=== PATIENT | male | born 1950 | race Hispanic/Latino ===

== ENCOUNTER 2024-10-05 06:08 | Observation (INO) | payer OTHER ==
[2024-09-30 11:47] VITALS: BP 161/68; PULSE 68; RESP 18; TEMP 98.6
[2024-09-30 12:02] LABS: BASOPHILS # (AUTO) 0.07 K/uL (0.00-0.20); BASOPHILS % (AUTO) 0.8 % (0.0-5.0); EOSINOPHILS # (AUTO) 0.09 K/uL (0.00-0.70); HEMATOCRIT 45.4 % (42-54); IMMATURE GRANULOCYTE ABSOLUTE 0.02 K/uL (0-1); LYMPHOCYTES # (AUTO) 2.4 K/uL (1.0-4.8); LYMPHOCYTES % (AUTO) 26.7 % (21.0-51.0); MEAN CORPUSCULAR HEMOGLOBIN 30.6 pg (27.0-33.0); MEAN CORPUSCULAR HGB CONC 33.9 g/dL (32.0-36.0); MEAN CORPUSCULAR VOLUME 90.3 fL (79-99); MONOCYTES # (AUTO) 0.8 K/uL (0.1-1.0); NEUTROPHILS # (AUTO) 5.5 K/uL (1.8-7.7); NEUTROPHILS % (AUTO) 62.3 % (40.0-77.0); PLATELET COUNT (AUTO) 224 K/uL (130-400); RED BLOOD CELL COUNT(AUTO) 5.03 MIL/uL (4.50-6.20); RED CELL DISTRIBUTION WIDTH 12.5 % (11.0-15.5); WHITE BLOOD COUNT (AUTO) 8.8 K/uL (4.8-10.8)
[2024-09-30 12:15] LABS: INR 0.97 (0.85-1.15); PROTHROMBIN TIME 10.9 SEC (9.6-11.6)
[2024-09-30 12:17] LABS: ALBUMIN 3.9 g/dL (3.5-5.0); CARBON DIOXIDE 30 mmol/L (21-32); CHLORIDE 102 mmol/L (101-111); GLOMERULAR FILTR. RATE CALC 79 mL/min (>90); GLUCOSE,RANDOM 102 mg/dL (70-105); POTASSIUM 4.3 mmol/L (3.5-5.1); SODIUM SERUM 139 mmol/L (136-145); UREA NITROGEN, BLOOD 20 mg/dL (7-18)
[2024-10-05] VITALS (27 sets, daily range): BP systolic 111–175; BP diastolic 46–105; PULSE 59–79; RESP 15–20; TEMP 97.1–98.8; O2SAT 96
[~2024-10-05] VITALS: Ht 167.6 cm; Wt 87.6 kg
[~2024-10-05 06:08] MED LIST: AMLO1CAP88 PO; CELE-125 PO; IBUP-2784 PO; MELO-106 PO; PRAV40TA3 PO
[2024-10-05] MEDS: ceFAZolin SODIUM 2 GM VIAL ONE (07:20)
[2024-10-05] MEDS: LACTATED RINGERS 1000ML 1,000 ML IV ONE (07:20)
[2024-10-05] MEDS ORDERED: ketOROlac 30MG VIAL (30MG/ML) ONE (07:35)
[2024-10-05] MEDS ORDERED: ROPivacaine 0.5% 5MG/ML 30ML ONE ×3 (07:35→08:55)
[2024-10-05] MEDS ORDERED: MIDAZOLAM HCL 1 MG/ML 2ML VIAL ONE (08:19)
[2024-10-05] MEDS ORDERED: proPOFol 10 MG/ML 20ML VIAL IV ONE (08:19)
[2024-10-05] MEDS ORDERED: ondanSETRON 4MG INJ ONE (08:20)
[2024-10-05] MEDS ORDERED: rocuRONium bROMide 10MG/1ML 5ML VL ONE ×2 (08:20→08:59)
[2024-10-05] MEDS ORDERED: FENTanyl CITRate PF 50 MCG/1 ML 2ML VIAL ONE ×2 (08:24→10:29)
[2024-10-05] MEDS: TRANEXAMIC ACID 1000MG/10ML ONE (08:50)
[2024-10-05] MEDS ORDERED: GLYCOPYRROLATE 0.2 MG/ML 5 ML VIAL ONE (10:29)
[2024-10-05] MEDS ORDERED: NEOSTIGMINE METHYLSULFATE 1MG/ML IV ONE (10:29)
[2024-10-05] MEDS ORDERED: PoTASSium chloRIDE 20MEQ/100ML 100 ML IV PRN (10:30)
[2024-10-05] MEDS ORDERED: PoTASSium chl 10% ELIXIR 20MEQ 20 MEQ/15 ML UDCUP PO PRN (10:30)
[2024-10-05] MEDS: ketOROlac 15MG/ML VIAL (15MG/ML) IV SCH (10:30)
[2024-10-05] MEDS ORDERED: DiphenhydrAMINE HCL 50 MG/ML VIAL IVP PRN (10:30)
[2024-10-05] MEDS ORDERED: PoTASSium chloRIDE 20MEQ ER 20 MEQ ERTAB PO PRN (10:30)
[2024-10-05] MEDS ORDERED: CALCIUM CARB 500MG PO PRN (10:30)
[2024-10-05] MEDS ORDERED: ondanSETRON 4MG INJ IVP PRN (10:30)
[2024-10-05] MEDS ORDERED: FERROUS FUMARATE 324 MG TABLET PO PRN (10:30)
--- NOTE | 2024-10-05 10:31 | OP ---
Operative Note: DATE OF PROCEDURE: 10/05/24 PREOPERATIVE DIAGNOSIS: Right knee osteoarthritis. POSTOPERATIVE DIAGNOSIS: Right knee osteoarthritis. PROCEDURE PERFORMED: Right knee total knee arthroplasty. SURGEON: Georgie Crews MD SALESMAN/OWNER: Kelly Turcios. ANESTHESIA: General with adductor canal block. ANESTHESIA: HIM MANAGER Manuel James ESTIMATED BLOOD LOSS: 50cc. COMPLICATIONS: None. DRAINS: None. SPECIMENS REMOVED: resected bone. Not sent to pathology. IMPLANTS: [employer] BCS size 4 Oxinium femur, size 4 tibial base plate, 32 mm patella, 10 mm polyethylene STATEMENT OF MEDICAL NECESSITY: The patient is a 74-year-old male who suffers from right knee osteoarthritis failing conservative management. After discussion of the risks, benefits, and alternatives with the patient, they voluntarily agreed to undergo the aforementioned procedure. DESCRIPTION OF PROCEDURE: Patient was properly identified in the preoperative holding area. Surgical site marking was verified and surgery consent reviewed. The patient was then taken to the operating room and placed in supine position on the OR table. After induction of general anesthesia, preoperative antibiotics were given, all bony prominences were well-padded, and a well padded tourniquet was applied but not inflated at this time. The right lower extremity was then prepped and draped in usual sterile fashion. Surgical time out was done verifying correct surgery, side, site, and location to be performed. We then began the procedure by exsanguinating the limb using an Esmarch and inflating the tourniquet to 350 mmHg. At this point, we made an anterior midline incision using a 10 blade, coming down sharply the level of the fascia. Skin flaps were elevated medially and laterally. We then obtained a clean 10 blade and performed a standard medial parapatellar arthrotomy. We excised the infrapatellar fat pad. We performed our soft tissue releases off of the tibia. We transected the ACL and removed the anterior portion of the medial & lateral meniscus. We then brought the knee into hyperflexion with the patella everted. We used our entry reamer to enter the femoral canal. We then placed our intramedullary cutting guide for our distal femoral cutting block. We then performed our distal femoral osteotomy ensuring appropriate rotation and removed the bony wafer. We then removed these pins and block and then used jig 2 to size the distal femur with the after mentioned size found. We then placed our 5-in-1 cutting block in 3 degrees of external rotation and took our 5 cuts ensuring to protect the patellar tendon and the collateral ligaments. We then removed the cutting block and our bony fragments using a curved osteotome. We then placed our PCL retractor subluxating the tibia anteriorly. Using an extra medullary tibial cutting guide, we hung the block for our proximal tibial cut taking 2 mm off the more diseased portion. Prior to pinning this block in place, we ensured appropriate varus/valgus alignment and posterior slope similar to the ho-chunk slope of the patient's knee. We then performed our proximal tibial osteotomy and removed the bony wafer using Bovie electrocautery to release any remaining soft tissue attachments. We then used our tibial sizing paddle and checked once more for varus & valgus alignment and found this to be appropriate. At this point, we pinned our tibial paddle in place. We then removed the PCL retractor and subluxated the tibia posteriorly while we placed our femoral trial component. We then finished preparing the notch with the reamer and box chisel. The notch portion of the trial femoral component was then placed. A posterior stabilized polyethylene, size 9 trial was placed. The knee was then taken through range of motion and found to have stable full range of motion. We then placed a bump under the ankle and everted the patella to perform our freehand cut of the undersurface the patella. We then sized our patella and reamed to the lug holes for this. We placed our trial patellar component and begin to take the knee through range of motion. The patella had appropriate tracking. At this point we began removing our trial components and punched the tibial keel prior to removing our tibial trial component. Final components were opened and cement was mixed on the back table while we injected local cocktail in the posterior capsule. We then thoroughly irrigated out the bone and dried the bony surfaces. We cemented our tibial component in place ensuring to remove excess cement and placed our trial polyethylene. We then cemented our femoral component in place once again taking time to ensure excess cement was removed leg was brought into full extension to help squeeze the excess cement from around the femoral component. We then brought the knee back in a flexion to remove this portion of the cement at this point we placed the ankle in a bump thoroughly irrigated off the patellar component and cemented our patellar component in standard fashion again removing excess cement. While we waited for the cement to cure, we thoroughly irrigated out the wound with normal saline. Once our cement had cured, we took the knee through a range of motion and found full and stable range of motion. We then elected to use the size 10 polyethylene and removed our trial polyethylene. We impacted our final polyethylene component in place in standard fashion and took the knee through a range of motion check once more. This was satisfactory so we began to repair the arthrotomy using #1 Vicryl in interrupted [id number] fashion. Subcutaneous tissue was repaired using 2-0 Vicryl. Running subcuticular 3-0 Monocryl stitch with Dermabond placed over this for the skin. We then applied a foam barrier dressing and a pressure dressing consisting of 4 x 4's fluffs and an Roe wrap. The tourniquet was then deflated. Patient was awakened from anesthesia, and they were taken to the recovery room in stable condition. GEORGIE CREWS MD Oct 05, 2024 10:31
[2024-10-05] MEDS: MEPERIDINE-PF 25 MG/ML SYG ONE ×2 (11:00→11:12)
--- NOTE | 2024-10-05 13:06 | HMCIMG ---
KNEE/PATELLA 1-2VWS RT HISTORY: Post surgery COMPARISON: None TECHNIQUE: 2 images of right knee were obtained. FINDINGS: Soft tissue swelling and soft tissue emphysema is seen consistent with recent surgery. Right total knee arthroplasty changes are seen. Vascular calcifications are seen. Degenerative changes are seen. IMPRESSION: 1. Findings as described above.
[2024-10-05] MEDS: GABApentin 100 MG CAPSULE PO SCH (13:54)
[2024-10-05] MEDS: HYDROcodone/APAP 5/325 1 TAB TABLET PO PRN (13:55)
[2024-10-05] MEDS: 0.9%NACL 1000ML 1,000 ML IV SCH (13:55)
[2024-10-05] MEDS: ceFAZolin SODIUM 2 GM VIAL IVP SCH (16:02)
--- NOTE | 2024-10-05 17:32 | NUR ---
[facility] CM MET WITH PT ASSESSMENT DONE. PATIENT IS INDEPENDENT PRIOR TO SURGERY, LIVES AT HOME ALONE, SONS LIVES CLOSE BY BUT THEY BOTH WORK, ONE WORKS AT NIGHT AND SLEEPS DURING THE DAY. PATIENT HAS A CANE. DENIES ANY OTHER EQUIPMENT/SERVICES. FEELS SAFE TO GO BACK HOME, STILL DRIVE, SONS ABLE TO ASSIST WITH TRANSPORTATION AND NEEDS NECESSARY. DISCUSSED MD RECOMMENDATIONS FOR SHORT TERM REHAB, PT PREFERRED TO GO TO [facility], INFORMED PT THIS CM UNABLE TO GUARANTEE PT WILL BE APPROVED DUE TO INSURANCE, PT REQUEST TO TRY, CONSENT OBTAINED [facility] #1 [facility], IF DENIED THEN AGREEABLE FOR #2 [facility]. [facility] IRU ONCE APPROVED. CM SENT ORDER, CLINICALS, PT TO [facility] VIA SECURE FAX AND EMAIL, CONFIRMATION RECEIVED. PENDING REP RESPONSE. PT PENDING APPROVAL AND ACCEPTANCE. MOT SEMI-FILLED, PENDING TO COMPLETE ONCE AUTH RECEIVED. EMS FILLED OUT PENDING TO FAX W/CURRENT DATE ONCE PT READY TO DC. CM TO CONTINUE TO FOLLOW UP. Addendum: 10/05/24 at 1735 by GEOVANNA MULTANI LVN Amended: Links added.
[2024-10-05] MEDS: ASPIRIN 325MG TAB PO SCH (20:57)
[2024-10-05] MEDS: CeleCOXib 200 MG CAP PO SCH (20:57)
[2024-10-05] MEDS: doCUSate SODIUM 100 MG CAP PO SCH (20:57)
[2024-10-05] MEDS: PRAVASTATIN 40MG PO SCH (20:59)
[2024-10-05] MEDS: traMADol HCL 50 MG TABLET PO PRN (22:56)
[2024-10-05] MEDS: BENZOCAINE/MENTH/CETYLPYRD CL 1 EACH LOZENGE MM PRN (23:03)
[2024-10-06] VITALS (7 sets, daily range): BP systolic 134–162; BP diastolic 58–72; PULSE 65–77; RESP 14–19; TEMP 97.7–99.6; O2SAT 95–96
[2024-10-06] MEDS: traMADol HCL 50 MG TABLET PO PRN (02:39)
[2024-10-06 05:27] LABS: HEMATOCRIT 34.7 % (42-54); MEAN CORPUSCULAR HGB CONC 33.7 g/dL (32.0-36.0); RED BLOOD CELL COUNT(AUTO) 3.77 MIL/uL (4.50-6.20); RED CELL DISTRIBUTION WIDTH 12.4 % (11.0-15.5); WHITE BLOOD COUNT (AUTO) 11.9 K/uL (4.8-10.8)
[2024-10-06 05:38] LABS: CREATININE 1.1 mg/dL (0.5-1.3)
--- NOTE | 2024-10-06 07:56 | PN ---
Ortho postop day one. This morning patient is awake alert and oriented he is seated out of bed in a chair. Reports moderate pain. Operative findings discussed with the patient. Vital signs have remained stable. Afebrile. Laboratory results reviewed. Noted to have a drop in hemoglobin and hematocrit as expected after total knee arthroplasty. Patient is currently asymptomatic and we will address per protocol as necessary. Voiding on his own without difficulty. Roe bandage his already been removed and the dressing to the anterior joint is intact. He has ice present to operative site. Alternating while seated extending and flexing his knee on footstool. Performing incentive spirometry as instructed with returned demonstration adequate. Patient was able to ambulate yesterday about 10 ft with therapy and is pending further therapy this morning. This morning patient states that although [facility] he is willing to go to [facility] as long as he does not go home. Patient states he has no one to help him at home. Assessment: Status post right total knee arthroplasty. Acute postoperative blood loss anemia. Plan: Continue with Dr. Crews's total knee arthroplasty protocol and discharge planning. Acute postoperative blood loss anemia addressed per protocol as necessary. Vitals/Labs Vital Signs Date Time Temp Pulse Resp B/P (MAP) Pulse Ox O2 Delivery O2 Flow Rate FiO2 10/06/24 07:51 98.2 65 14 135/69 95 Room Air 0.0 10/05/24 20:00 21 Laboratory Tests 10/06/24 05:08 Medications Current Medications Cefazolin Sodium 2 gm STK-MED ONCE .ROUTE Last administered on 10/05/24at 08:45; Start 10/05/24 at 06:56; Stop 10/05/24 at 07:01; Status DC Lactated Ringer's 1,000 ml @ As Directed STK-MED ONCE IV Last administered on 10/05/24at 07:20; Start 10/05/24 at 06:56; Stop 10/05/24 at 07:01; Status DC Ketorolac Tromethamine 30 mg STK-MED ONCE .ROUTE; Start 10/05/24 at 07:35; Stop 10/05/24 at 07:35; Status DC Ropivacaine 150 mg STK-MED ONCE .ROUTE; Start 10/05/24 at 07:35; Stop 10/05/24 at 07:35; Status DC Ropivacaine 150 mg STK-MED ONCE .ROUTE; Start 10/05/24 at 08:19; Stop 10/05/24 at 08:19; Status DC Propofol 200 mg STK-MED ONCE IV; Start 10/05/24 at 08:19; Stop 10/05/24 at 08:20; Status DC Midazolam HCl 2 mg STK-MED ONCE .ROUTE; Start 10/05/24 at 08:19; Stop 10/05/24 at 08:20; Status DC Ondansetron HCl 4 mg STK-MED ONCE .ROUTE; Start 10/05/24 at 08:20; Stop 10/05/24 at 08:20; Status DC Rocuronium [place] 50 mg STK-MED ONCE .ROUTE; Start 10/05/24 at 08:20; Stop 10/05/24 at 08:20; Status DC Fentanyl Citrate 100 mcg STK-MED ONCE .ROUTE; Start 10/05/24 at 08:24; Stop 10/05/24 at 08:24; Status DC Tranexamic Acid 1,000 mg STK-MED ONCE .ROUTE Last administered on 10/05/24at 08:50; Start 10/05/24 at 08:54; Stop 10/05/24 at 08:55; Status DC Ropivacaine 150 mg STK-MED ONCE .ROUTE; Start 10/05/24 at 08:55; Stop 10/05/24 at 08:55; Status DC Rocuronium [place] 50 mg STK-MED ONCE .ROUTE; Start 10/05/24 at 08:59; Stop 10/05/24 at 08:59; Status DC Sodium Chloride 1,000 ml @ 100 mls/hr Q10H IV Last administered on 10/05/24at 13:55; Start 10/05/24 at 10:30; Stop 10/06/24 at 10:29 Polyethylene Glycol 17 gm DAILY PO; Start 10/06/24 at 09:00; Stop 11/05/24 at 08:59 Bisacodyl 10 mg DAILY PRN RC; Start 10/08/24 at 10:30; Stop 11/07/24 at 10:29 Aspirin 325 mg BID PO Last administered on 10/05/24at 20:57; Start 10/05/24 at 21:00; Stop 11/04/24 at 20:59 Ketorolac Tromethamine 15 mg Q6H PRN IV; Start 10/06/24 at 10:30; Stop 10/06/24 at 02:23; Status DC Ferrous Fumarate 324 mg DAILY PRN PO; Start 10/05/24 at 10:30; Stop 11/04/24 at 10:29 Ondansetron HCl 4 mg Q6H PRN IVP; Start 10/05/24 at 10:30; Stop 11/04/24 at 10:29 Calcium Carbonate 500 mg Q12H PRN PO; Start 10/05/24 at 10:30; Stop 11/04/24 at 10:29 Diphenhydramine HCl 25 mg Q6H PRN IVP; Start 10/05/24 at 10:30; Stop 11/04/24 at 10:29 Cefazolin Sodium 2 gm Q8H IVP Last administered on 10/05/24at 23:40; Start 10/05/24 at 15:30; Stop 10/05/24 at 23:31; Status DC Cyclobenzaprine HCl 5 mg Q8H PRN PO; Start 10/05/24 at 10:30; Stop 11/04/24 at 10:29 Gabapentin 100 mg TID PO Last administered on 10/05/24at 20:57; Start 10/05/24 at 14:00; Stop 11/04/24 at 13:59 Ketorolac Tromethamine 15 mg Q8H IV Last administered on 10/06/24at 02:39; Start 10/05/24 at 10:30; Stop 10/06/24 at 02:31; Status DC Docusate Sodium 100 mg BID PO Last administered on 10/05/24at 20:57; Start 10/05/24 at 21:00; Stop 11/04/24 at 20:59 Potassium Chloride 100 ml @ 100 mls/hr AD PRN IV; Start 10/05/24 at 10:30; Stop 11/04/24 at 10:29 Potassium Chloride 20 meq AD PRN PO; Start 10/05/24 at 10:30; Stop 11/04/24 at 10:29 Potassium Chloride 20 meq AD PRN PO; Start 10/05/24 at 10:30; Stop 11/04/24 at 10:29 Tramadol HCl 50 mg Q6H PRN PO Last administered on 10/05/24at 22:56; Start 10/05/24 at 10:30; Stop 10/06/24 at 02:22; Status DC Acetaminophen/ Hydrocodone Bitart Q4H PRN PO Last administered on 10/06/24at 06:24; Start 10/05/24 at 10:30; Stop 10/10/24 at 10:29 Home Med amLODIPine-benAZEPril 5-10 MG DAILY PO; Start 10/06/24 at 09:00; Stop 11/05/24 at 08:59 Celecoxib 200 mg BID PO Last administered on 10/05/24at 20:57; Start 10/05/24 at 21:00; Stop 11/04/24 at 20:59 Home Med PRAVASTATIN 40MG HS PO; Start 10/05/24 at 21:00; Stop 11/04/24 at 20:59 Glycopyrrolate 1 mg STK-MED ONCE .ROUTE; Start 10/05/24 at 10:29; Stop 10/05/24 at 10:29; Status DC Neostigmine Methylsulfate 10 mg STK-MED ONCE IV; Start 10/05/24 at 10:29; Stop 10/05/24 at 10:29; Status DC Fentanyl Citrate 100 mcg STK-MED ONCE .ROUTE; Start 10/05/24 at 10:29; Stop 10/05/24 at 10:29; Status DC Meperidine HCl 25 mg STK-MED ONCE .ROUTE Last administered on 10/05/24at 11:00; Start 10/05/24 at 10:58; Stop 10/05/24 at 10:58; Status DC Meperidine HCl 25 mg STK-MED ONCE .ROUTE Last administered on 10/05/24at 11:12; Start 10/05/24 at 11:10; Stop 10/05/24 at 11:10; Status DC Benzocaine 1 each Q4H PRN MM Last administered on 10/05/24at 23:03; Start 10/05/24 at 22:30; Stop 11/04/24 at 22:29 Tramadol HCl 50 mg Q6H PRN PO Last administered on 10/06/24at 02:39; Start 10/06/24 at 02:30; Stop 10/11/24 at 02:29 ROLANDO WYLIE NP Oct 06, 2024 07:56
[2024-10-06] MEDS: polyETHYLene GLYCol 3350 17 GM POWD.PACK PO SCH (09:23)
[2024-10-06] MEDS ORDERED: ketOROlac 15MG/ML VIAL (15MG/ML) IV PRN (10:30)
--- NOTE | 2024-10-06 14:15 | NUR ---
ORTHO COORDINATOR: TEACHING REGARDING PNEUMONIA AND DVT PREVENTION, PAIN EXPECTATIONS AND PAIN MANAGEMENT. PATIENT IN BED. B SCD SLEEVES IN PLACE AND FUNCTIONING. INCENTIVE SPIROMETER AT BEDSIDE. PATIENT RETURN DEMONSTRATED PROPER USE OF INCENTIVE SPIROMETER AND FOOT FLEXION AND EXTENSION. NUMERIC PAIN SCALE REVIEWED. PATIENT DIRECTED TO PROVIDE A NUMERIC VALUE FOR PAIN AND DESCRIBE TYPE OF PAIN, EXAMPLES PROVIDED. REVIEWED PAIN MEDICATIONS ARE NEEDED AND HE WOULD HAVE TO CALL AND REQUEST. ENCOURAGED PATIENT TO PREMEDICATE PRIOR TO PHYSICAL THERAPY. PATIENT VERBALIZED UNDERSTANDING TO ALL INSTRUCTIONS. PATIENT WOULD LIKE TO GO TO REHAB, REPORTS NO HELP AT HOME. NO ADDITIONAL QUESTIONS OR CONCERNS.
[2024-10-06] MEDS: CYCLOBENZAPRINE HCL 10 MG TABLET PO PRN (16:59)
[2024-10-07] VITALS: BP 158/75; PULSE 70; RESP 16; TEMP 98.2
[2024-10-07 04:11] VITALS: BP 163/79; PULSE 71; RESP 18; TEMP 97.9
[2024-10-07 08:00] VITALS: BP 140/68; PULSE 70; RESP 14; TEMP 98.2; O2SAT 92
[2024-10-07 12:00] VITALS: BP 165/65; PULSE 78; RESP 16; TEMP 98.2
--- NOTE | 2024-10-07 12:45 | NUR ---
ORTHO COORDINATOR: REINFORCED TEACHING. PATIENT UP TO CHAIR. ROUNDED WITH DR ARANDA. REINFORCED PAIN MANAGEMENT STRATEGIES. NO ADDITIONAL QUESTIONS OR CONCERNS AT THIS TIME.
--- NOTE | 2024-10-07 13:14 | PN ---
Ortho postop day two. Patient was seated in bed eating lunch of the time of my arrival. Reports moderate pain. States controlled and mostly complaining of thigh muscular pain. Denies chest pain or shortness of breath. Requests topical menthol type pain reliever. Vital signs stable, no acute distress Alert and oriented x3 Nonlabored breathing Right lower extremity - mild edema about the knee - mild ecchymosis along the medial side - calf soft, nontender, negative Don's - gets within 5 of full extension Patient was able to ambulate with physical therapy yesterday 40/45 feet in the a.m./p.m. Discharge planning is for senior living facility. Patient originally told case management he wanted [facility] rehab. I had already explained to him that this would not be a approved by his insurance. Case management notified me that his insurance requires. Appear for [facility] rehab. I declined and instructed them to work on senior living facility. Assessment: Postop day two status post right total knee arthroplasty Acute postoperative blood loss anemia. Plan: Continue with my total knee arthroplasty protocol and discharge planning. Acute postoperative blood loss anemia addressed per protocol as necessary. We will see if pharmacy has anything topical he can use for muscle pain relief. Vitals/Labs Vital Signs Date Time Temp Pulse Resp B/P (MAP) Pulse Ox O2 Delivery O2 Flow Rate FiO2 10/07/24 12:00 98.2 78 16 165/65 93 Room Air 0.0 10/07/24 08:00 21 Medications Current Medications Cefazolin Sodium 2 gm STK-MED ONCE .ROUTE Last administered on 10/05/24at 08:45; Start 10/05/24 at 06:56; Stop 10/05/24 at 07:01; Status DC Lactated Ringer's 1,000 ml @ As Directed STK-MED ONCE IV Last administered on 10/05/24at 07:20; Start 10/05/24 at 06:56; Stop 10/05/24 at 07:01; Status DC Ketorolac Tromethamine 30 mg STK-MED ONCE .ROUTE; Start 10/05/24 at 07:35; Stop 10/05/24 at 07:35; Status DC Ropivacaine 150 mg STK-MED ONCE .ROUTE; Start 10/05/24 at 07:35; Stop 10/05/24 at 07:35; Status DC Ropivacaine 150 mg STK-MED ONCE .ROUTE; Start 10/05/24 at 08:19; Stop 10/05/24 at 08:19; Status DC Propofol 200 mg STK-MED ONCE IV; Start 10/05/24 at 08:19; Stop 10/05/24 at 08:20; Status DC Midazolam HCl 2 mg STK-MED ONCE .ROUTE; Start 10/05/24 at 08:19; Stop 10/05/24 at 08:20; Status DC Ondansetron HCl 4 mg STK-MED ONCE .ROUTE; Start 10/05/24 at 08:20; Stop 10/05/24 at 08:20; Status DC Rocuronium [place] 50 mg STK-MED ONCE .ROUTE; Start 10/05/24 at 08:20; Stop 10/05/24 at 08:20; Status DC Fentanyl Citrate 100 mcg STK-MED ONCE .ROUTE; Start 10/05/24 at 08:24; Stop 10/05/24 at 08:24; Status DC Tranexamic Acid 1,000 mg STK-MED ONCE .ROUTE Last administered on 10/05/24at 08:50; Start 10/05/24 at 08:54; Stop 10/05/24 at 08:55; Status DC Ropivacaine 150 mg STK-MED ONCE .ROUTE; Start 10/05/24 at 08:55; Stop 10/05/24 at 08:55; Status DC Rocuronium [place] 50 mg STK-MED ONCE .ROUTE; Start 10/05/24 at 08:59; Stop at 08:59; Status DC Sodium Chloride 1,000 ml @ 100 mls/hr Q10H IV Last administered on 10/05/24at 13:55; Start 10/05/24 at 10:30; Stop 10/06/24 at 10:29; Status DC Polyethylene Glycol 17 gm DAILY PO Last administered on 10/07/24at 08:36; Start 10/06/24 at 09:00; Stop 11/05/24 at 08:59 Bisacodyl 10 mg DAILY PRN RC; Start 10/08/24 at 10:30; Stop 11/07/24 at 10:29 Aspirin 325 mg BID PO Last administered on 10/07/24at 08:36; Start 10/05/24 at 21:00; Stop 11/04/24 at 20:59 Ketorolac Tromethamine 15 mg Q6H PRN IV; Start 10/06/24 at 10:30; Stop 10/06/24 at 02:23; Status DC Ferrous Fumarate 324 mg DAILY PRN PO; Start 10/05/24 at 10:30; Stop 11/04/24 at 10:29 Ondansetron HCl 4 mg Q6H PRN IVP; Start 10/05/24 at 10:30; Stop 11/04/24 at 10:29 Calcium Carbonate 500 mg Q12H PRN PO; Start 10/05/24 at 10:30; Stop 11/04/24 at 10:29 Diphenhydramine HCl 25 mg Q6H PRN IVP; Start 10/05/24 at 10:30; Stop 11/04/24 at 10:29 Cefazolin Sodium 2 gm Q8H IVP Last administered on 10/05/24at 23:40; Start 10/05/24 at 15:30; Stop 10/05/24 at 23:31; Status DC Cyclobenzaprine HCl 5 mg Q8H PRN PO Last administered on 10/06/24at 16:59; Start 10/05/24 at 10:30; Stop 11/04/24 at 10:29 Gabapentin 100 mg TID PO Last administered on 10/07/24at 08:36; Start 10/05/24 at 14:00; Stop 11/04/24 at 13:59 Ketorolac Tromethamine 15 mg Q8H IV Last administered on 10/06/24at 02:39; Start 10/05/24 at 10:30; Stop 10/06/24 at 02:31; Status DC Docusate Sodium 100 mg BID PO Last administered on 10/07/24at 08:36; Start 10/05/24 at 21:00; Stop 11/04/24 at 20:59 Potassium Chloride 100 ml @ 100 mls/hr AD PRN IV; Start 10/05/24 at 10:30; Stop 11/04/24 at 10:29 Potassium Chloride 20 meq AD PRN PO; Start 10/05/24 at 10:30; Stop 11/04/24 at 10:29 Potassium Chloride 20 meq AD PRN PO; Start 10/05/24 at 10:30; Stop 11/04/24 at 10:29 Tramadol HCl 50 mg Q6H PRN PO Last administered on 10/05/24at 22:56; Start 10/05/24 at 10:30; Stop 10/06/24 at 02:22; Status DC Acetaminophen/ Hydrocodone Bitart Q4H PRN PO Last administered on 10/07/24at 08:37; Start 10/05/24 at 10:30; Stop 10/10/24 at 10:29 Home Med amLODIPine-benAZEPril 5-10 MG DAILY PO; Start 10/06/24 at 09:00; Stop 11/05/24 at 08:59 Celecoxib 200 mg BID PO Last administered on 10/07/24at 08:36; Start 10/05/24 at 21:00; Stop 11/04/24 at 20:59 Home Med PRAVASTATIN 40MG HS PO; Start 10/05/24 at 21:00; Stop 11/04/24 at 20:59 Glycopyrrolate 1 mg STK-MED ONCE .ROUTE; Start 10/05/24 at 10:29; Stop 10/05/24 at 10:29; Status DC Neostigmine Methylsulfate 10 mg STK-MED ONCE IV; Start 10/05/24 at 10:29; Stop 10/05/24 at 10:29; Status DC Fentanyl Citrate 100 mcg STK-MED ONCE .ROUTE; Start 10/05/24 at 10:29; Stop 10/05/24 at 10:29; Status DC Meperidine HCl 25 mg STK-MED ONCE .ROUTE Last administered on 10/05/24at 11:00; Start 10/05/24 at 10:58; Stop 10/05/24 at 10:58; Status DC Meperidine HCl 25 mg STK-MED ONCE .ROUTE Last administered on 10/05/24at 11:12; Start 10/05/24 at 11:10; Stop 10/05/24 at 11:10; Status DC Benzocaine 1 each Q4H PRN MM Last administered on 10/05/24at 23:03; Start 10/05/24 at 22:30; Stop 11/04/24 at 22:29 Tramadol HCl 50 mg Q6H PRN PO Last administered on 10/07/24at 02:17; Start 10/06/24 at 02:30; Stop 10/11/24 at 02:29 PEPE ARANDA MD Oct 07, 2024 13:14
[2024-10-07 16:00] VITALS: BP 154/71; PULSE 75; RESP 17; TEMP 98.5
--- NOTE | 2024-10-07 16:30 | DS ---
Discharge Summary Hospital Course Summary: The patient was admitted to the hospital postoperatively on 10/05/2024 after undergoing right total knee arthroplasty. They did well with routine postoperative pain control. They worked well with physical therapy. Patient developed some acute blood loss anemia but remained asymptomatic. The hospital course was otherwise uncomplicated. They were subsequently able to be discharged on postoperative day 2 once discharge arrangements [facility]. Card Decorator(s): none Procedure(s): Right total knee arthroplasty, 10/05/2024 Assessment/Plan: ASSESSMENT: POD 2 s/p R TKA acute blood loss anemia - asymptomatic PLAN: see discharge instructions Discharge Instructions: Begin working with the facility's Physical Therapy. It is important to work on your range of motion exercises even when the therapist is not present. Spend most of the time out of bed and sitting upright in a chair to prevent pneumonia. The dressing may be removed today. Shower allowing soap and water to run over the wound. Do not scrub over the wound. Do not submerge the wound in the tub/pool. Pat dry. You may leave wound open to air. You may apply a dressing if clothing is causing irritation. Apply ice to help with swelling and pain. The following medications have been recommended to the facility: [place] 1-2 tabs every 6 hours as needed for pain. (call the clinic for refills) Cyclobenzaprine 5mg every 8 hours as needed for muscle pain/spasm. Colace 100mg 1 capsule 2 times a day for constipation. Aspirin 325mg 1 tab twice a day for a month to prevent blood clot formation Gabapentin 100mg every 8 hours for pain. (you may discontinue this if causing excessive drowsiness or low blood pressure) Call [facility] for follow up appointment in 2-3 weeks. Home Medications: Reported Medications Pravastatin Sodium (Pravastatin Sodium) 40 Mg Tablet, 40 MG PO DAILY, TAB 09/30/24 Amlodipine Besylate/Benazepril (Lotrel 5-10 mg) 5 Mg-10 Mg Capsule, 1 EACH PO DAILY, CAP 09/30/24 Discontinued Reported Medications Ibuprofen (Ibuprofen 200 mg Tablet) 200 Mg Tablet, 200 MG PO TID PRN for PAIN, TAB 09/30/24 Celecoxib (Celecoxib) 200 Mg Capsule, 200 MG PO BID, CAP 09/30/24 Meloxicam (Meloxicam) 7.5 Mg Tablet, 7.5 MG PO DAILY, TAB 09/30/24 PEPE ARANDA MD Oct 07, 2024 16:30
--- NOTE | 2024-10-07 19:22 | NUR ---
[facility] transfer [facility] on [facility]
--- NOTE | 2024-10-07 19:34 | NUR ---
DC PLAN INFO SENT TO [facility]. SENT INFO TO MASON KAYE DIRECTOR FOR INSURANCE AUTH. RECEIVED EMAIL SAYING APPROVED. MIKKI CALLED AMY WITH [facility]. SAID PATIENT APPROVED. MOT AND EMS IN CHART. PATIENT LIVES ALONE. SAID NOT ABLE TO GET TO FACILITY. NO BEDS AVAILABLE AT [facility] WHEN REFERRAL SENT. LET NURSE, MD AND PATIENT KNOW. PATIENT NOT HAPPY ABOUT LEAVING EXPLAINED THAT IF INSURANCE APPROVED AND MD CRAIG AND PATIENT IS THE ONE SAYING NOT WANTING TO LEAVE INSURANCE COULD DENY THE EXTRA TIME. PATIENT THEN SAID OKAY IF MD DC WILL BE OKAY TO TRANSFER. Addendum: 10/07/24 at 1944 by TAJ SINGH RN CM Amended: Links added.
--- NOTE | 2024-10-07 19:54 | NUR ---
REHAB TRANSFER REPORT GIVEN TO [facility]. ALL QUESTIONS ANSWERED. PENDING EMS TO [employer].
[2024-10-07 20:10] VITALS: O2SAT 94
[2024-10-08] MEDS ORDERED: BisaCODYL 10 MG SUPP.RECT RC PRN (10:30)
== END 2024-10-07 20:20 ==
LOC: DAH 06:08 → DAHIP 06:09 → 4DH 12:00
PROVIDERS: ADMIT Student in an Organized Health Care Education/Training Program; ATTEND Student in an Organized Health Care Education/Training Program
DX: M17.11 Unilateral primary osteoarthritis, right knee (principal); D62 Acute posthemorrhagic anemia; G89.18 Other acute postprocedural pain; E78.5 Hyperlipidemia, unspecified; I10 Essential (primary) hypertension; I73.9 Peripheral vascular disease, unspecified; Z79.899 Other long term (current) drug therapy
CPT/HCPCS: 82040; 80048 ×2; 85025; 85610; 85730; 84134; 86140; 36415 ×2; 87641; 64447; 96374; 96376 ×2; 96375; 27447; 73560; 97161; 97530 ×7; 85027; 97116 ×4; G0378 ×53; A4600; A4223 ×2; A4663; J7120; J3010 ×2; J3490 ×4; J2250; J2704; J2405; J1885 ×3; J2710; J2175 ×2; J2795 ×3; J0690 ×3; C1713 ×2; C1776 ×2; A4649 ×2; A4930; A6255; A4215; A4222; A4221; A4216